=== PATIENT | male | born 1955 | race Hispanic/Latino ===

== ENCOUNTER 2018-04-06 09:16 | Inpatient (IN) | payer BC ==
[2018-03-17 09:10] VITALS: BMI 34.2
--- NOTE | 2018-04-06 10:03 | CP.PCM.HP ---
History of Present Illness - History of Present Illness History of Present Illness: 62M with right hip DJD failed conservative mgmt and elected for TKR. PMH: depression, HTN, DM, last took metformin 2 days ago, BS 137 PSH: denies smokes 15 cigarettes per day, cessation advised No prior stents, CAD, seizures, DVT/PE, TIA Present on Admission - Present on Admission Any Indicators Present on Admission: No Review of Systems - Review of Systems All systems: reviewed and no additional remarkable complaints except - Musculoskeletal Musculoskeletal: As Per HPI Past Patient History - Past Medical History & Family History Past Medical History?: Yes Past Family History: Reviewed and not pertinent - Past Social History Smoking Status: Heavy Smoker > 10 Cigarettes Daily - CARDIAC Hx Hypertension: Yes Hx Pacemaker: No - PULMONARY Hx Respiratory Disorders: No Hx Pneumonia: Yes (X2(LAST AGE 23)) - NEUROLOGICAL Hx Paralysis: No - ENDOCRINE/METABOLIC Hx Endocrine Disorders: Yes Hx Diabetes Mellitus Type 2: Yes - HEMATOLOGICAL/ONCOLOGICAL Hx Blood Transfusions: No - MUSCULOSKELETAL/RHEUMATOLOGICAL Hx Musculoskeletal Disorders: Yes Hx Osteoarthritis: Yes - GASTROINTESTINAL Hx Gastrointestinal Disorders: No - GENITOURINARY/GYNECOLOGICAL Hx Genitourinary Disorders: No Hx Reproductive Disorders: No - PSYCHIATRIC Hx Depression: Yes Hx Emotional Abuse: No Hx Physical Abuse: No Hx Substance Use: No - SURGICAL HISTORY Hx Surgeries: Yes Other/Comment: colonoscopy - ANESTHESIA Hx Anesthesia Reactions: No Hx Malignant Hyperthermia: No Meds Allergies/Adverse Reactions: Allergies Allergy/AdvReac Type Severity Reaction Status Date / Time No Known Allergies Allergy Verified 03/17/18 09:10 Physical Exam - Constitutional Appears: Well, No Acute Distress - Head Exam Head Exam: ATRAUMATIC - Neck Exam Neck exam: Positive for: Full Rom, Normal Inspection - Extremities Exam Additional comments: right leg 8mm short - Expanded Lower Extremities Exam Right Ankle exam: FULL ROM Neuro vacular tendon exam: no vascular compromise - Neurological Exam Neurological exam: Alert, Oriented x3 - Psychiatric Exam Psychiatric exam: Normal Affect, Normal Mood - Skin Skin Exam: Dry, Intact, Normal Color, Warm Results - Vital Signs Recent Vital Signs: Last Vital Signs Temp 97.7 F 04/06/18 09:30 Pulse 89 04/06/18 09:30 Resp 20 04/06/18 09:30 BP 154/78 H 04/06/18 09:30 Pulse Ox 94 L 04/06/18 09:30 - Labs Labs: Laboratory Results - last 24 hr 04/06/18 09:55 POC Glucose (mg/dL) 137 H Assessment & Plan (1) Primary osteoarthritis of right hip Assessment and Plan: NPO T&C for OR medical clearance adn H&P Dr. Hendricks on chart d/w DR. Isabel, agrees with above Status: Acute (2) Diabetes type 2, controlled Assessment and Plan: cont home meds Status: Chronic (3) HTN (hypertension) Assessment and Plan: cont home meds Status: Chronic (4) Depression Assessment and Plan: cont home meds Status: Chronic (5) Vitamin D deficiency Assessment and Plan: cont supp Status: Chronic
[2018-04-06] MEDS ORDERED: Dextrose 50% SYRINGE Inj (50 ml) IV PRN (10:35)
[2018-04-06] MEDS ORDERED: Tranexamic Acid 2 ML ONE (10:42)
[2018-04-06] MEDS ORDERED: Vancomycin 1 g Inj ONE ×2 (10:42→13:26)
[2018-04-06] MEDS ORDERED: Bupivacaine Liposomal Inj 20 ml ONE (10:43)
[2018-04-06] MEDS ORDERED: Morphine 1 mg/ml preservative-free Inj(Duramorph) IT ONE (10:45)
[2018-04-06] MEDS ORDERED: Succinylcholine 200 mg/10 ml Inj IV ONE (10:53)
[2018-04-06] MEDS ORDERED: Morphine 1 mg/ml preservative-free Inj(Duramorph) ONE (10:53)
[2018-04-06] MEDS ORDERED: Etomidate 20 mg/10ml Inj IV ONE (10:53)
[2018-04-06] MEDS ORDERED: ePHEDrine 50 mg/ml Inj ONE (11:20)
[2018-04-06] MEDS ORDERED: Clindamycin 150 mg/mL Inj ONE (11:21)
[2018-04-06] MEDS ORDERED: cefTRIAXone (Rocephin) 1 gm Inj ONE (11:22)
[2018-04-06] MEDS ORDERED: Glycopyrrolate 0.2 mg/ml (2ml vial) ONE (14:15)
[2018-04-06] MEDS ORDERED: Neostigmine Methylsulfate 3mg/3ml Syringe IV ONE (14:16)
--- NOTE | 2018-04-06 14:32 | PCM.SURG1 ---
Surgeon's Initial Post Op Note - Surgeon's Notes Surgeon: Sarah Isabel MD Special Education Associate: Anila Martinez PA-C Type of Anesthesia: General Endo, Spinal Anesthesia Administered By: Dr. Renteria Pre-Operative Diagnosis: right hip osteoarthritis Operative Findings: see full note Post-Operative Diagnosis: same Operation Performed: right total hip arthroplasty Specimen/Specimens Removed: femoral head Estimated Blood Loss: EBL {In ML}: 50 Blood Products Given: N/A Drains Used: Wound Vac Post-Op Condition: Fair Date of Surgery/Procedure: 04/06/18 Time of Surgery/Procedure: 14:31
[2018-04-06] MEDS ORDERED: HYDROmorphone 0.5 mg/0.5 ml ISec IVP PRN (15:02)
[2018-04-06] MEDS ORDERED: Lactated Ringer's 1,000 ML IV SCH (16:00)
[2018-04-06] MEDS ORDERED: DiphenhydrAMINE 50 mg/ml Inj IVP PRN (17:11)
[2018-04-06] MEDS ORDERED: Naloxone 0.02 mg/ml Inj (Neonatal) IV PRN (17:12)
[2018-04-06] MEDS: ceFAZolin IV 2 gm in Dextrose 2 GM/50 ML BAG IVPB SCH (18:48)
[2018-04-06] MEDS ORDERED: ceFAZolin 2 GM in Sodium Chloride 0.9% 100 ML IVPB SCH (19:00)
--- NOTE | 2018-04-07 00:04 | OP ---
Copied To: Stew Isabel MD Attending MD: Stew Isabel MD PROCEDURE DATE: 04/06/2018 PREOPERATIVE DIAGNOSIS: Right hip arthritis. POSTOPERATIVE DIAGNOSIS: Right hip arthritis. PROCEDURE: Right total hip arthroplasty. SURGEON: Stew Isabel MD. Dr. Isabel was assisted by Annabelle Zapata and Kelly Argueta, the physician assistants. Both Ms. Argueta and Ms. Zapata were scrubbed and present throughout the entire case and assisted in patient positioning, retraction, manipulation of the extremity as well as wound closure. ANESTHESIA: General with spinal. COMPLICATIONS: None. ESTIMATED BLOOD LOSS: 100 mL. IMPLANT: Biomet dual mobility total hip. INDICATIONS FOR PROCEDURE: This is a 62-year-old gentleman with longstanding right hip pain. Clinical examination was consistent with a mild limb length discrepancy with the right leg shorter than the left, loss of internal and external rotation, pain with weightbearing. Radiographic examination was consistent with advanced degenerative joint disease of the right hip. After a period of failed nonsurgical management, recommendations were for a right total hip arthroplasty. The risks, benefits and alternatives of procedure were discussed with the patient and the informed consent was obtained. OPERATIVE PROCEDURE: After the surgical site was signed and verified in the preoperative holding area, the patient was taken to the operating room and placed supine on the operating room table. After administration of general spinal anesthesia, the patient received 900 mg of clindamycin and 1 g of Rocephin IV. Sheffield catheter was inserted. The patient was positioned in the lateral decubitus position with the right hip up towards the ceiling. Venodyne boot was placed on the nonoperative extremity and the right lower extremity was prepped and draped in the usual sterile fashion. Approximately a 12 cm curvilinear incision was made over the right hip. Soft tissue was dissected sharply down to the fascia and the fascia was incised. Charnley retractor was placed. Short external rotators were identified, tagged and resected off the proximal femur. T-type capsulotomy was performed and the hip was dislocated. Based on preoperative templating, a femoral neck resection was performed and the femoral neck was removed and passed off as a specimen. An anterior capsulotomy was performed and the acetabulum was exposed. Once the acetabulum was exposed, the acetabulum was reamed sequentially to allow for a 54+ press-fit cup. was taken to maintain proper acetabular height and version. A trial cup was placed and satisfied. The trial was removed and the hip was pulse lavaged with antibiotic saline solution. Bony surfaces were dried and the actual cup was impacted into place, again maintaining proper height and version. The cup was further fixed using 2 screws in the posterior-superior quadrant. At this point, the liner for the dual mobility hip was then impacted into place and our attention was directed to the femur. The medullary canal of the proximal femur was reamed and broached sequentially to allow for a 14 mm press-fit stem. Calcar was planed and with a trial stem in place and a lateral offset neck, the head was placed and the hip was taken through a range of motion and was noted to be stable with approximately equal limb length. At this point, the hip was dislocated and the trial was removed. The hip was once again pulse lavaged and the actual stem was impacted into place to be able to maintain proper version. The head was then impacted over the stem and the hip was reduced. Again, the hip was taken through a range of motion and was noted to be stable with approximately equal limb lengths. At this point, capsule was repaired using #1 Vicryl suture. Subcutaneous tissue was repaired using #1 Vicryl suture. The deep fascia was closed using #1 Vicryl suture. Subcutaneous tissue was closed using 0 Vicryl and 2-0 Vicryl suture, and the skin was closed using syeda. A ALLI incisional wound dressing was applied and a hip abduction pillow was placed. The patient was awakened and taken to the recovery room in stable condition. Stew Isabel MD
[2018-04-07] MEDS: BREXPIPRAZOLE 1 MG PO SCH ×2 (02:32→22:00)
[2018-04-07] MEDS ORDERED: ceFAZolin 2 GM in Sodium Chloride 0.9% 100 ML IVPB SCH (04:00)
[2018-04-07] MEDS: ceFAZolin IV 2 gm in Dextrose 2 GM/50 ML BAG IVPB SCH (05:36)
[2018-04-07 07:32] LABS: BASO # 0.01 K/mm3 (0.0-2.0); BASO % 0.1 % (0.0-3.0); EOS % 0.2 % (1.5-5.0); GRAN # 10.14 (1.4-6.5); GRAN % 83.9 % (50.0-68.0); HEMOGLOBIN 12.9 g/dL (14.0-18.0); LYMPH # 0.9 (1.2-3.4); MEAN CELL VOLUME 83.6 fl (80.0-105.0); MEAN CORPUSCULAR HEMOGLOBIN 28.3 pg (25.0-35.0); MEAN CORPUSCULAR HGB CONC 33.9 g/dl (31.0-37.0); MEAN PLATELET VOLUME 8.2 fl (7.0-11.0); MONO # 1.1 (0.1-0.6); MONO % 8.8 % (1.0-6.0); RBC 4.56 10^6/uL (3.5-6.1); WHITE BLOOD COUNT 12.1 10^3/ul (4.5-11.0)
[2018-04-07 08:01] LABS: BLOOD UREA NITROGEN 26 mg/dL (7-21); CALCIUM 7.9 mg/dL (8.4-10.5); GFR AFRICAN-AMERICAN > 60; GFR NON-AFRICAN AMERICAN > 60
[2018-04-07] MEDS ORDERED: Sodium Chloride 0.9% 1,000 ML IV SCH (08:15)
[2018-04-07] MEDS: Insulin Regular 1 UNITS/0.01 ML ML SC SCH ×4 (08:20→22:00)
[2018-04-07] MEDS ORDERED: Albuterol 0.083% Inhal Sol (2.5 mg/3 mL) UD IH PRN ×2 (08:53→09:00)
[2018-04-07 08:56] LABS: PH,URINE 5.5 (4.7-8.0); URINE BILIRUBIN NEGATIVE (NEGATIVE); URINE BLOOD LARGE (NEGATIVE); URINE GLUCOSE (UA) NEGATIVE (NEGATIVE); URINE LEUKOCYTE ESTERASE NEGATIVE Leu/uL (NEGATIVE); URINE PROTEIN 30 mg/dL (<30 mg/dL); URINE UROBILINOGEN 0.2 E.U./dL (<1 E.U./dL)
[2018-04-07 09:02] LABS: URINE APPEARANCE CLEAR (CLEAR); URINE COLOR YELLOW (YELLOW)
[2018-04-07 09:07] LABS: URINE RBC 25 - 30 /hpf (0-2); URINE WBC 0 - 2 /hpf (0-6)
[2018-04-07 09:08] LABS: URINE AMORPHOUS SEDIMENT FEW; URINE BACTERIA MANY (NEG)
--- NOTE | 2018-04-07 09:28 | RAD ---
Date of service: 04/06/2018 PROCEDURE: Pelvis three views portable HISTORY: s/p R RICARDO. patient in pacu COMPARISON: TECHNIQUE: Three views FINDINGS: There is a right hip prosthesis in satisfactory position. There are no complicating factors. IMPRESSION: As above
[2018-04-07] MEDS: Cholecalciferol 400 Intl Units Tab PO SCH (10:09)
[2018-04-07] MEDS: Non Formulary Medication (Omega-3-Acid Ethyl Esters [Omega 3] 500 MG) PO SCH (10:12)
--- NOTE | 2018-04-07 10:34 | CP.PCM.PN ---
Subjective - Date & Time of Evaluation Date of Evaluation: 04/07/18 Time of Evaluation: 10:33 - Subjective Subjective: Pt awake, alert. Sitting in chair. Afebrile R hip: dressing clean and intact NVI distally thigh soft WBC 12.1 Hg 12.9 POD #1 PT Eliquis D/c planning to rehab Objective - Vital Signs/Intake and Output Vital Signs (last 24 hours): Temp Pulse Resp BP Pulse Ox 97.9 F 96 H 20 115/65 96 04/07/18 07:33 04/07/18 07:33 04/07/18 07:33 04/07/18 07:33 04/07/18 07:33 Intake and Output: 04/07/18 04/07/18 06:59 18:59 Intake Total 120 Balance 120 - Medications Medications: Current Medications Acetaminophen (Tylenol 325mg Tab) 650 mg PO Q6H [facility] Albuterol Sulfate (Albuterol 0.083% Inhal Colleen (2.5 Mg/3 Ml) Ud) 2.5 mg IH [id number] PRN PRN Reason: Wheezing Apixaban (Eliquis) 2.5 mg PO BID DAVID PRN Reason: Protocol Last Admin: 04/07/18 10:09 Dose: 2.5 mg Atorvastatin Calcium (Lipitor) 80 mg PO HS [facility] Last Admin: 04/06/18 22:43 Dose: 80 mg Diphenhydramine HCl (Benadryl) 25 mg IVP Q4H PRN PRN Reason: Itching / Pruritus Docusate Sodium (Colace) 100 mg PO TID [facility] Last Admin: 04/07/18 10:09 Dose: 100 mg Escitalopram Oxalate (Lexapro) 20 mg PO HS [facility] Last Admin: 04/06/18 22:43 Dose: 20 mg Glyburide (Micronase) 5 mg PO 0800,1700 [facility] Hydromorphone HCl (Dilaudid) 0.5 mg IVP Q4H PRN PRN Reason: Pain, severe (8-10) Sodium Chloride (Sodium Chloride 0.9%) 1,000 mls @ 125 mls/hr IV .Q8H [facility] Stop: 04/07/18 16:14 Last Admin: 04/07/18 08:39 Dose: 125 mls/hr Insulin Human Regular (Humulin R) 0 units SC ACHS [facility] PRN Reason: Protocol Last Admin: 04/07/18 08:20 Dose: 1 unit Metformin HCl (Glucophage) 500 mg PO BID [facility] Metoclopramide HCl (Reglan) 10 mg IV ONCE PRN PRN Reason: Nausea/Vomiting Naloxone HCl (Narcan) 0.02 mg IV ONCE PRN PRN Reason: Excess sedation Non-Formulary Medication (Brexpiprazole [Rexulti]) 1 mg PO HS [facility] Last Admin: 04/07/18 02:32 Dose: Not Given Non-Formulary Medication (Ygmyw-6-Btay Ethyl Esters [Gardiner 3]) 500 mg PO DAILY [facility] Last Admin: 04/07/18 10:12 Dose: Not Given Ondansetron HCl (Zofran Inj) 4 mg IVP Q6H PRN PRN Reason: Nausea/Vomiting Ondansetron HCl (Zofran Inj) 4 mg IVP Q4H PRN PRN Reason: Nausea/Vomiting Sennosides (Senokot Tab) 17.2 mg PO [facility] Last Admin: 04/06/18 22:42 Dose: 17.2 mg Vitamin D (Vitamin D 400 Intl Units Tab) 400 intlu PO DAILY [facility] Last Admin: 04/07/18 10:09 Dose: 400 intlu - Labs Labs: 04/07/18 07:00 04/07/18 07:00
[2018-04-07] MEDS: HYDROmorphone 0.5 mg/0.5 ml ISec IVP PRN ×2 (12:19→21:10)
[2018-04-07] MEDS ORDERED: cefTRIAXone 1 gm 1 GM/100 ML BAG IVPB SCH (13:00)
--- NOTE | 2018-04-07 19:21 | CON ---
Copied To: Slim Hendricks MD Attending MD: Slim Hendricks MD DATE: 04/07/2018 HISTORY OF PRESENT ILLNESS: A 62-year-old white male, tobacco abuser. The patient was admitted to the service of Dr. Stew Isabel for surgery. The patient had a right total hip replacement by Dr. Isabel. The patient tolerated the procedure well. He has seen the following morning in bed, awake, alert. The patient does have some wheezing. Also, was noted by respiratory therapy to be having some apneic episodes at night, possible sleep apnea. The patient was put on CPAP last night and did well. He will be evaluated as an outpatient for sleep apnea and also has CPAP at night here and also he will be started on some nebulizer. He is a smoker and mildly obese. PHYSICAL EXAMINATION: GENERAL: Shows a well-developed, well-nourished white male, in no apparent distress . HEART: Regular sinus rhythm. CHEST: Shows wheezing in all lung friedman, approximately 1-2 blocks. ABDOMEN: Obese, but benign. EXTREMITIES: Without cyanosis, clubbing, or edema. The patient is moving all extremities. Pulses are intact. The wounds are clean and dry. LABORATORY DATA: On Mr. Valdivia shows a hemoglobin of 12.9 and a potassium of 4.3. He does have mildly elevated blood sugars, 168. BUN and creatinine are stable. The patient is currently on Rexulti for psychological condition. He is on apixaban, metformin, Lexapro, Lipitor, glyburide. The patient is doing well. We will initiate some nebulizer therapy and CPAP at night. Slim Hendricks MD
[2018-04-08 07:30] LABS: BASO # 0.01 K/mm3 (0.0-2.0); BASO % 0.1 % (0.0-3.0); EOS % 0.1 % (1.5-5.0); GRAN # 9.32 (1.4-6.5); GRAN % 84.1 % (50.0-68.0); HEMOGLOBIN 12.1 g/dL (14.0-18.0); LYMPH # 0.9 (1.2-3.4); MEAN CORPUSCULAR HEMOGLOBIN 28.5 pg (25.0-35.0); MEAN CORPUSCULAR HGB CONC 34.4 g/dl (31.0-37.0); MEAN PLATELET VOLUME 7.9 fl (7.0-11.0); MONO # 0.9 (0.1-0.6); MONO % 7.7 % (1.0-6.0); RBC 4.24 10^6/uL (3.5-6.1); RED CELL DISTRIBUTION WIDTH 15.7 % (11.5-14.5); WHITE BLOOD COUNT 11.1 10^3/ul (4.5-11.0)
[2018-04-08 07:36] VITALS: RESP 20
[2018-04-08] MEDS: Insulin Regular 1 UNITS/0.01 ML ML SC SCH (07:55)
[2018-04-08 08:05] LABS: BLOOD UREA NITROGEN 17 mg/dL (7-21); CALCIUM 8.8 mg/dL (8.4-10.5); GFR AFRICAN-AMERICAN > 60; GFR NON-AFRICAN AMERICAN > 60
[2018-04-08] MEDS: Cholecalciferol 400 Intl Units Tab PO SCH (09:28)
[2018-04-08] MEDS: Non Formulary Medication (Omega-3-Acid Ethyl Esters [Omega 3] 500 MG) PO SCH (09:30)
--- NOTE | 2018-04-08 13:21 | PN ---
Copied To: Slim Hendricks MD Attending MD: Slim Hendricks MD DATE: 04/08/2018 This is a 62-year-old white male status post right total hip replacement by Dr. Isabel. The patient is doing well postop. He did have some wheezing yesterday. We started some physical therapy and occupational therapy and also some incentive spirometry and nebulizer therapy. The patient has no wheezing today, less shortness of breath. He was able to sit up and stand yesterday. He was able to walk to the bathroom. His physical examination is unchanged. His bandages have been changed. His wounds are clean and dry. He has no swelling or signs of DVT in either leg. He has good pulses bilaterally. The patient's chest is clear to auscultation and percussion. The patient will be transferred to rehab [facility]. Slim Hendricks MD
[2018-04-08 14:32] VITALS: BP 162/86; PULSE 103; TEMP 98.5; O2SAT 96
== END 2018-04-08 15:58 | DRG 470 ==
LOC: SDAINP 09:16 → EDSTATUS 11:15 → 5RSO 18:32
PROVIDERS: ADMIT Orthopaedic Surgery; ATTEND Orthopaedic Surgery
PROC: 0SR90JA Replacement of Right Hip Joint with Synthetic Substitute, Uncemented, Open Approach (ICD-10-PCS; principal; 2018-04-06 11:15)
DX: M16.11 Unilateral primary osteoarthritis, right hip (principal); I10 Essential (primary) hypertension; E11.9 Type 2 diabetes mellitus without complications; E55.9 Vitamin D deficiency, unspecified; E66.9 Obesity, unspecified; F17.200 Nicotine dependence, unspecified, uncomplicated; G47.30 Sleep apnea, unspecified; M21.70 Unequal limb length (acquired), unspecified site; Z87.01 Personal history of pneumonia (recurrent); Z68.35 Body mass index [BMI] 35.0-35.9, adult

== ENCOUNTER 2018-11-05 08:23 | Outpatient (CLI) | payer BC | END 2018-11-05 08:24 | disposition home or self-care (01) | LOC: PAT 08:23 ==

== ENCOUNTER 2018-11-30 06:13 | Inpatient (IN) | payer BC ==
[2018-11-30] MEDS ORDERED: Vancomycin 1 g Inj ONE (07:09)
[2018-11-30] MEDS ORDERED: Tranexamic Acid 2 ML ONE (07:09)
[2018-11-30] MEDS ORDERED: Sodium Chloride 0.9% 10 ML IV ONE (07:09)
[2018-11-30] MEDS ORDERED: Bupivacaine 0.5% 50 ML IJ ONE (07:10)
[2018-11-30] MEDS ORDERED: Bupivacaine Liposomal Inj 20 ml ONE (07:10)
--- NOTE | 2018-11-30 07:24 | CP.PCM.HP ---
History of Present Illness - History of Present Illness History of Present Illness: 63 M with left hip osteoarthritis, failed conservative management, elected for a left total hip replacement. NKDA pmhx of COPD, DM, hyperlipidemia, sleep apnea No hx of AL, stroke, blood clots or bleeding disorders Present on Admission - Present on Admission Any Indicators Present on Admission: No History of DVT/PE: No History of Uncontrolled Diabetes: No Review of Systems - Review of Systems All systems: reviewed and no additional remarkable complaints except (left hip pain) Past Patient History - Past Medical History & Family History Past Medical History?: Yes - Past Social History Smoking Status: Heavy Smoker > 10 Cigarettes Daily - CARDIAC Hx Pacemaker: No - PULMONARY Hx Respiratory Disorders: No Hx Pneumonia: Yes (X2(LAST AGE 23)) - NEUROLOGICAL Hx Paralysis: No - ENDOCRINE/METABOLIC Hx Diabetes Mellitus Type 2: Yes - HEMATOLOGICAL/ONCOLOGICAL Hx Blood Transfusions: No - MUSCULOSKELETAL/RHEUMATOLOGICAL Hx Musculoskeletal Disorders: Yes - GASTROINTESTINAL Hx Gastrointestinal Disorders: No - GENITOURINARY/GYNECOLOGICAL Hx Genitourinary Disorders: No - PSYCHIATRIC Hx Emotional Abuse: No Hx Physical Abuse: No Hx Substance Use: No - SURGICAL HISTORY Hx Surgeries: Yes - ANESTHESIA Hx Anesthesia Reactions: No Hx Malignant Hyperthermia: No Meds Allergies/Adverse Reactions: Allergies Allergy/AdvReac Type Severity Reaction Status Date / Time No Known Allergies Allergy Verified 03/17/18 09:10 Physical Exam - Constitutional Appears: Well, No Acute Distress - Head Exam Head Exam: ATRAUMATIC, NORMAL INSPECTION, NORMOCEPHALIC - Neck Exam Neck exam: Positive for: Full Rom, Normal Inspection - Respiratory Exam Respiratory Exam: NORMAL BREATHING PATTERN - Cardiovascular Exam Cardiovascular Exam: RRR - Extremities Exam Additional comments: L hip: skin intact. Pain with passive IR/ER rotation which is limited with IR. Equal limb length discrepancy. Calf and thigh are soft and nontender. Grossly NVI distally - Neurological Exam Neurological exam: Alert, CN II-XII Intact, Normal Gait, Oriented x3 - Psychiatric Exam Psychiatric exam: Normal Affect, Normal Mood - Skin Skin Exam: Dry, Intact, Normal Color, Warm Results - Vital Signs Recent Vital Signs: Last Vital Signs Temp 97.9 F 11/30/18 06:15 Pulse 84 11/30/18 06:15 Resp 20 11/30/18 06:15 BP 100/77 11/30/18 06:15 Pulse Ox 93 L 11/30/18 06:15 - Labs Labs: Laboratory Results - last 24 hr 11/30/18 06:37 POC Glucose (mg/dL) 151 H Assessment & Plan (1) Osteoarthritis of left hip Assessment and Plan: Patient NPO T&C OR for left total hip replacement Patient medically optimized for surgery. Risks benefits and alternatives discussed. Patient states understanding and would like to proceed. Status: Acute (2) Diabetes type 2, controlled Status: Chronic (3) Vitamin D deficiency Status: Chronic (4) COPD (chronic obstructive pulmonary disease) Status: Chronic (5) Hyperlipidemia Status: Chronic (6) Sleep apnea Status: Chronic
[2018-11-30] MEDS ORDERED: oxyCODONE 5 mg Immediate Release Tab PO PRN (07:37)
[2018-11-30] MEDS ORDERED: Propofol 10 mg/ml Inj (20 ML) ONE (08:04)
[2018-11-30] MEDS ORDERED: Midazolam 2 MG/2 ML VIAL ONE (08:04)
[2018-11-30] MEDS ORDERED: Rocuronium 10 mg/ml (5 ml) ONE ×2 (08:05→09:01)
[2018-11-30] MEDS ORDERED: Succinylcholine 200 mg/10 ml Inj IV ONE (08:05)
[2018-11-30] MEDS ORDERED: Glycopyrrolate 0.2 mg/ml (2ml vial) ONE ×2 (08:13→10:53)
[2018-11-30] MEDS ORDERED: ePHEDrine 50 mg/ml Inj ONE (08:25)
[2018-11-30] MEDS ORDERED: Neostigmine Methylsulfate 3mg/3ml Syringe IV ONE (10:52)
--- NOTE | 2018-11-30 11:44 | PCM.SURG1 ---
Surgeon's Initial Post Op Note - Surgeon's Notes Surgeon: Sarah Isabel MD Executor Of Estate: Shameka Griffiths Pa-C Type of Anesthesia: General Endo Anesthesia Administered By: Dr. Castaneda Pre-Operative Diagnosis: left hip osteoarthritis Operative Findings: see full note Post-Operative Diagnosis: same Operation Performed: left total hip replacement Specimen/Specimens Removed: femoral head Estimated Blood Loss: EBL {In ML}: 100 Blood Products Given: N/A Drains Used: No Drains Post-Op Condition: Fair Date of Surgery/Procedure: 11/30/18 Time of Surgery/Procedure: 11:44 (Palpable DP/PT pulses)
[2018-11-30] MEDS ORDERED: Lidocaine PF 2% (5 ml) Inj (For Cardiac Arrhy) ONE (11:45)
[2018-11-30] MEDS ORDERED: HYDROmorphone 0.5 mg/0.5 ml ISec IVP PRN (11:59)
[2018-11-30] MEDS ORDERED: Lactated Ringer's 1,000 ML IV SCH (12:00)
[2018-11-30] MEDS ORDERED: HYDROmorphone 0.5 mg/0.5 ml ISec IVP ONE ×3 (12:12→13:38)
[2018-11-30] MEDS ORDERED: HYDROmorphone 0.5 mg/0.5 ml ISec ONE ×2 (12:42→13:39)
[2018-11-30] MEDS ORDERED: HYDROmorphone 1 mg/ml ISec ONE (12:49)
[2018-11-30] MEDS ORDERED: HYDROmorphone 1 mg/ml ISec IVP ONE (12:50)
[2018-11-30] MEDS ORDERED: HYDROmorphone 1 mg/ml ISec IVP STA (12:52)
--- NOTE | 2018-11-30 13:12 | RAD ---
Date of service: 11/30/2018 PROCEDURE: Left hip single view HISTORY: s/p L RICARDO. patient in PACU COMPARISON: TECHNIQUE: Single view FINDINGS: The left hip prosthesis is in satisfactory alignment. There are no complicating factors IMPRESSION: As above
--- NOTE | 2018-11-30 13:14 | RAD ---
Date of service: 11/30/2018 PROCEDURE: Pelvis and left hip HISTORY: left hip 2 views. include an AP pelvis COMPARISON: TECHNIQUE: Three views FINDINGS: There is a left hip prosthesis in satisfactory alignment. No complicating factors IMPRESSION: As above
[2018-11-30] MEDS ORDERED: Home Med 1 UNIT PO SCH (14:00)
[2018-11-30] MEDS: Home Med 1 UNIT PO SCH (15:11)
[2018-11-30] MEDS: Omega-3-Acid Ethyl Esters 1 GM Cap PO SCH ×2 (15:11→17:01)
[2018-11-30] MEDS: ceFAZolin IV 2 gm in Dextrose 2 GM/50 ML BAG IVPB SCH (16:47)
[2018-11-30 18:22] VITALS: BMI 34.4
[2018-11-30] MEDS ORDERED: Pneumococcal 23-Valent Vaccine IM ONE (18:22)
[2018-11-30] MEDS ORDERED: Influenza Vaccine 60 mcg/0.5 mL SYR (4YR UP) IM ONE (18:22)
[2018-11-30] MEDS: HYDROmorphone 1 mg/ml ISec IVP PRN (20:20)
--- NOTE | 2018-11-30 23:27 | OP ---
PROCEDURE DATE: 11/30/2018 PREOPERATIVE DIAGNOSIS: Left hip osteoarthritis. POSTOPERATIVE DIAGNOSIS: Left hip osteoarthritis. PROCEDURE: Left total hip arthroplasty. SURGEON: Stew Isabel MD PRACTICAL NURSING TEACHER: Dr. Isabel was assisted by Annabelle Dobson, the physician research program assistant and Kelly Argueta, the physician research program assistant. Both physician assistants were scrubbed and present throughout the entire case and assisted in patient positioning, retraction, manipulation of the extremity during the case and wound closure. ANESTHESIA: General. COMPLICATIONS: None. ESTIMATED BLOOD LOSS: 100 mL IMPLANT: Biomet dual mobility total hip. INDICATION OF THE PROCEDURE: This is a 63-year-old gentleman who presented with longstanding left hip pain. Clinical examination was consistent with pain and loss of internal rotation, pain resisted hip flexion and axial load and a leg length discrepancy with the left lower extremity shorter than the right. Radiographic examination consistent with advanced degenerative joint disease. After a period of failed nonsurgical management, recommendations were for a left total hip arthroplasty. The risks, benefits and alternatives of the procedure were discussed with the patient including possibility of instability, infection, leg length discrepancy, and informed consent was obtained. OPERATIVE PROCEDURE: After surgical site was signed and verified in the perioperative holding area, the patient was taken to the operating room and placed supine on the operating room table. After administration of general anesthesia, the patient received 3 g of Ancef IV. Sheffield catheter was inserted. Venodyne boot was placed on the nonoperative extremity. The patient was positioned in the lateral decubitus position with the left hip up towards the ceiling. Care was taken to make sure all bony prominences and nerves were well padded and protected. Axillary roll was placed in the right axilla, and the left lower extremity was prepped and draped in the usual sterile fashion. Bony landmarks were identified about the left hip. Approximately 12-cm curvilinear incision was made over the proximal femur and pelvis. Soft tissue was dissected sharply down to the fascia. The fascia was incised. The Charnley retractor was placed. The short external rotators were identified, tied and resected off the proximal femur. T-type capsulotomy was performed. The hip was dislocated. At this point, based on the preoperative templating, a femoral neck resection was performed and the femoral head was passed off the field as a specimen. At this point, an anterior capsulotomy was performed. Once the acetabulum was exposed, the acetabular labrum was sharply excised. At this point, the acetabulum was reamed sequentially to allow for a 52-mm press-fit cup. Care was taken to maintain proper acetabular height and version. A trial cup was placed and satisfied. The hip joint was pulse lavaged with antibiotic saline solution. The bony surfaces were dried. The actual cup was impacted into place, again making sure to maintain proper height and version. Once this was done, the acetabulum was further fixed using two screws in the posterior-superior quadrant. The lining from the cup was then impacted into place. Our attention was directed to the proximal femur. Canal finding reamer was used additionally. At this point, a medullary canal of the proximal femur was reamed and broached sequentially to allow for a 14-mm press-fit colorless stem. Once the trial stem was in place, the calcar was planed and a trial neck and head was placed. The hip was reduced and limb length was noted to be approximately equal and was noted to be stable. Satisfied, the hip was dislocated and the trial implants were removed. The hip joint was once again pulse lavaged with antibiotic saline solution, and the bony surfaces were dried. The actual stem was then impacted into place making sure to maintain the proper version. Satisfied, the actual head was then impacted over the neck and the hip was reduced. Again, the hip was taken through the range of motion and noted to be stable with approximately equal limb length. At this point, capsule was repaired using 1 Vicryl suture. The short external rotator was repaired using a 1 Vicryl suture. The deep fascia was closed using interrupted #1 Vicryl suture. Subcutaneous tissue was closed using 0 Vicryl and 2-0 Vicryl sutures. The skin was closed using a 3-0 nylon. A sterile dressing was applied and abduction pillow brace was placed. The patient was transferred supine, awakened, and taken to recovery room in stable condition. Stew Isabel MD
[2018-12-01] MEDS: ceFAZolin IV 2 gm in Dextrose 2 GM/50 ML BAG IVPB SCH (05:27)
[2018-12-01] MEDS: HYDROmorphone 1 mg/ml ISec IVP PRN (06:25)
--- NOTE | 2018-12-01 06:40 | CP.PCM.CON ---
Past Patient History - Past Medical History & Family History Past Medical History?: Yes - Past Social History Smoking Status: Former Smoker - CARDIAC Hx Cardiac Disorders: Yes Hx Hypercholesterolemia: Yes Hx Hypertension: Yes Hx Pacemaker: No - PULMONARY Hx Respiratory Disorders: Yes (SMOKED 1 PPD X 39 YRS QUIT) Hx Chronic Obstructive Pulmonary Disease (COPD): Yes Hx Pneumonia: Yes (X2(LAST AGE 23)) Hx Sleep Apnea: Yes - NEUROLOGICAL Hx Neurological Disorder: No - HEENT Hx HEENT Problems: No - RENAL Hx Chronic Kidney Disease: No - ENDOCRINE/METABOLIC Hx Endocrine Disorders: Yes Hx Diabetes Mellitus Type 2: Yes - HEMATOLOGICAL/ONCOLOGICAL Hx Blood Disorders: No - INTEGUMENTARY Hx Dermatological Problems: Yes Other/Comment: POST L HIP TOTAL REPLACEMENT. - MUSCULOSKELETAL/RHEUMATOLOGICAL Hx Musculoskeletal Disorders: Yes (L HIP TOTAL ARTHROPLASTY,RIGHT HIP SX March,R KNEE SX) Hx Falls: No Hx Unsteady Gait: Yes - GASTROINTESTINAL Hx Gastrointestinal Disorders: No - GENITOURINARY/GYNECOLOGICAL Hx Genitourinary Disorders: No - PSYCHIATRIC Hx Psychophysiologic Disorder: No Hx Emotional Abuse: No Hx Physical Abuse: No Hx Substance Use: No - SURGICAL HISTORY Hx Surgeries: Yes Hx Orthopedic Surgery: Yes (BILATERAL HIP SX-L 11-30-18,R HIP MARCH 2018.) - ANESTHESIA Hx Anesthesia Reactions: No Hx Malignant Hyperthermia: No Meds Allergies/Adverse Reactions: Allergies Allergy/AdvReac Type Severity Reaction Status Date / Time No Known Allergies Allergy Verified 11/30/18 15:14 - Medications Medications: Current Medications Acetaminophen (Tylenol 325mg Tab) 650 mg PO Q6H [facility] Last Admin: 12/01/18 06:09 Dose: Not Given Apixaban (Eliquis) 2.5 mg PO BID [facility]; Protocol Atorvastatin Calcium (Lipitor) 80 mg PO DIN [facility] Last Admin: 11/30/18 17:01 Dose: 80 mg Calcium Carbonate (Caltrate) 600 mg PO DAILY [facility] Cholecalciferol (Vitamin D) 2,000 intlu PO DAILY [facility] Docusate Sodium (Colace) 100 mg PO BID [facility] Last Admin: 11/30/18 17:02 Dose: 100 mg Escitalopram Oxalate (Lexapro) 20 mg PO [facility] Glipizide (Glucotrol) 5 mg PO ACB [facility] Last Admin: 11/30/18 15:10 Dose: Not Given Home Med (Home Med) 100 unit PO DAILY [facility] Last Admin: 11/30/18 15:11 Dose: Not Given Hydromorphone HCl (Dilaudid) 1 mg IVP Q4H PRN PRN Reason: Pain, severe (8-10) Last Admin: 12/01/18 06:25 Dose: 1 mg Hydromorphone HCl (Dilaudid) 0.5 mg IVP Q15M PRN PRN Reason: Pain, Moderate/Severe (4-10) Metformin HCl (Glucophage) 500 mg PO BID [facility] Last Admin: 11/30/18 17:01 Dose: 500 mg Atulm-1-Pipv Ethyl Esters (Lovaza) 1 gm PO BID [facility] Last Admin: 11/30/18 17:01 Dose: 1 gm Oxycodone HCl (Oxycodone Immediate Release Tab) 5 mg PO Q4H PRN PRN Reason: Pain, Mild (1-3) Oxycodone HCl (Oxycodone Immediate Release Tab) 10 mg PO Q4 PRN PRN Reason: Pain, moderate (4-7) Pregabalin (Lyrica) 50 mg PO BID [facility] Last Admin: 11/30/18 17:01 Dose: 50 mg Sennosides (Senokot Tab) 8.6 mg PO DAILY [facility] Last Admin: 11/30/18 15:11 Dose: Not Given Results - Vital Signs Recent Vital Signs: Last Vital Signs Temp 99 F 11/30/18 22:27 Pulse 100 H 11/30/18 22:27 Resp 18 11/30/18 22:27 BP 139/73 11/30/18 22:27 Pulse Ox 96 11/30/18 22:27 - Labs Labs: Laboratory Results - last 24 hr 11/30/18 11/30/18 11/30/18 06:37 06:40 15:57 POC Glucose (mg/dL) 151 H 193 H Blood Type A POSITIVE Antibody Screen Negative Crossmatch See Detail BBK History Checked Patient has bt 11/30/18 11/30/18 21:10 22:49 POC Glucose (mg/dL) > 500 H* 166 H Blood Type Antibody Screen Crossmatch BBK History Checked
[2018-12-01 07:14] LABS: BASO # 0.02 K/mm3 (0.0-2.0); BASO % 0.2 % (0.0-3.0); EOS % 0.3 % (1.5-5.0); HEMOGLOBIN 12.4 g/dL (14.0-18.0); LYMPH # 0.9 (1.2-3.4); LYMPH % 8.1 % (22.0-35.0); MEAN CELL VOLUME 85.8 fl (80.0-105.0); MEAN CORPUSCULAR HEMOGLOBIN 28.8 pg (25.0-35.0); MEAN CORPUSCULAR HGB CONC 33.6 g/dl (31.0-37.0); MEAN PLATELET VOLUME 8.5 fl (7.0-11.0); MONO % 9.1 % (1.0-6.0); RBC 4.3 10^6/uL (3.5-6.1); RED CELL DISTRIBUTION WIDTH 15.4 % (11.5-14.5)
[2018-12-01 07:50] LABS: BLOOD UREA NITROGEN 16 mg/dL (7-21); CALCIUM 8.4 mg/dL (8.4-10.5); GFR NON-AFRICAN AMERICAN > 60
[2018-12-01] MEDS: Omega-3-Acid Ethyl Esters 1 GM Cap PO SCH ×2 (09:01→17:11)
[2018-12-01] MEDS: Cholecalciferol 1,000 INTLU TAB PO SCH (09:01)
[2018-12-01] MEDS: Home Med 1 UNIT PO SCH (09:02)
--- NOTE | 2018-12-01 09:45 | CP.PCM.PN ---
Subjective - Date & Time of Evaluation Date of Evaluation: 12/01/18 Time of Evaluation: 09:42 - Subjective Subjective: Patient seen and examined. Alert and awake, sitting up in bed. No overnight events. Denies any numbness tingling CP, SOB. Using incentive spirometer and hip abduction pillow on. Afebrile WBC 11 Hgb 12.4 L hip: dressings clean dry and intact. +AROM foot and ankle. Sensation intact to light touch. Thigh and calf soft and nontender. NVI distally POD#1 s/p L RICARDO Cont DVT prophylaxis Cont PT, posterior hip precautions Cont incentive spirometer Dressing changes tomorrow discharge planning to [facility] Discussed above with Dr. Isabel, agrees with above Objective - Vital Signs/Intake and Output Vital Signs (last 24 hours): Temp Pulse Resp BP Pulse Ox 98.6 F 92 H 18 141/72 98 12/01/18 06:00 12/01/18 06:00 12/01/18 06:00 12/01/18 06:00 12/01/18 06:00 Intake and Output: 12/01/18 12/01/18 06:59 18:59 Intake Total 480 Output Total 1350 Balance -870 - Medications Medications: Current Medications Acetaminophen (Tylenol 325mg Tab) 650 mg PO Q6H [facility] Last Admin: 12/01/18 08:26 Dose: 650 mg Apixaban (Eliquis) 2.5 mg PO BID [facility]; Protocol Last Admin: 12/01/18 09:01 Dose: 2.5 mg Atorvastatin Calcium (Lipitor) 80 mg PO DIN [facility] Last Admin: 11/30/18 17:01 Dose: 80 mg Calcium Carbonate (Caltrate) 600 mg PO DAILY [facility] Last Admin: 12/01/18 09:01 Dose: 600 mg Cholecalciferol (Vitamin D) 2,000 intlu PO DAILY [facility] Last Admin: 12/01/18 09:01 Dose: 2,000 intlu Docusate Sodium (Colace) 100 mg PO BID [facility] Last Admin: 12/01/18 09:02 Dose: 100 mg Escitalopram Oxalate (Lexapro) 20 mg PO HS [facility] Glipizide (Glucotrol) 5 mg PO ACB [facility] Last Admin: 12/01/18 08:26 Dose: 5 mg Home Med (Home Med) 100 unit PO DAILY [facility] Last Admin: 12/01/18 09:02 Dose: Not Given Hydromorphone HCl (Dilaudid) 1 mg IVP Q4H PRN PRN Reason: Pain, severe (8-10) Last Admin: 12/01/18 06:25 Dose: 1 mg Hydromorphone HCl (Dilaudid) 0.5 mg IVP Q15M PRN PRN Reason: Pain, Moderate/Severe (4-10) Insulin Human Regular (Humulin R Low) [address] [facility]; Protocol Metformin HCl (Glucophage) 500 mg PO BID [facility] Last Admin: 12/01/18 09:01 Dose: 500 mg Haqbo-2-Lrho Ethyl Esters (Lovaza) 1 gm PO BID [facility] Last Admin: 12/01/18 09:01 Dose: 1 gm Oxycodone HCl (Oxycodone Immediate Release Tab) 5 mg PO Q4H PRN PRN Reason: Pain, Mild (1-3) Oxycodone HCl (Oxycodone Immediate Release Tab) 10 mg PO Q4 PRN PRN Reason: Pain, moderate (4-7) Pregabalin (Lyrica) 50 mg PO BID [facility] Last Admin: 12/01/18 09:01 Dose: 50 mg Sennosides (Senokot Tab) 8.6 mg PO DAILY [facility] Last Admin: 12/01/18 09:01 Dose: 8.6 mg - Labs Labs: 12/01/18 06:45 12/01/18 06:45 Assessment and Plan (1) Osteoarthritis of left hip Status: Acute (2) Diabetes type 2, controlled Status: Chronic (3) Vitamin D deficiency Status: Chronic (4) COPD (chronic obstructive pulmonary disease) Status: Chronic (5) Hyperlipidemia Status: Chronic (6) Sleep apnea Status: Chronic
--- NOTE | 2018-12-01 11:32 | CON ---
DATE: 12/01/2018 HISTORY OF PRESENT ILLNESS: A 63-year-old white male with a history of total right hip replacement approximately less than 1 year ago who was admitted for total left hip replacement by Dr. Isabel. The patient has a history of obesity and degenerative arthritis. He was admitted and had a surgery done. He is postop, doing well. He has a blood pressure of 141/72, temperature is 98.6 and pulse is 92. His hemoglobin is 12.2, . BUN and creatinine are stable, potassium is 3.9 and blood sugar is 165. HOME MEDICATIONS: The patient's home medications include Crestor, glipizide, metformin, Invokana, Lexapro, magnesium oxide, acetaminophen, vitamin D and Rexulti. PAST MEDICAL HISTORY: The patient has also history of non insulin-dependent diabetes mellitus, hyperlipidemia, hypertension and depressive disorder. PHYSICAL EXAMINATION: GENERAL: Shows a well-developed, well-nourished white male, postop, doing well as he is awake and alert . He is complaining of pain in the anterior left thigh. VITAL SIGNS: He is afebrile. Vital signs are stable. CHEST: Clear to auscultation and percussion. HEART: Regular sinus rhythm. No S3 or murmurs. EXTREMITIES: Without cyanosis, clubbing, or edema. The patient's pulses are intact bilaterally. He is moving all extremities. There is no loss of strength or sensation. His blood sugar will be controlled in the hospital. We will start physical therapy, occupational, incentive spirometry, anticoagulation and eventually rehab. Slim Hendricks MD
[2018-12-01] MEDS: Insulin Reg-LOW-Coverage SC SCH ×2 (11:57→17:11)
[2018-12-01] MEDS: oxyCODONE 10 mg Immediate Release Tab PO PRN (20:09)
[2018-12-01 22:29] VITALS: RESP 20
[2018-12-02 07:30] LABS: BLOOD UREA NITROGEN 19 mg/dL (7-21); GFR NON-AFRICAN AMERICAN > 60
[2018-12-02 08:08] VITALS: O2SAT 91
[2018-12-02] MEDS: Insulin Reg-LOW-Coverage SC SCH ×2 (08:39→17:07)
[2018-12-02] MEDS: oxyCODONE 10 mg Immediate Release Tab PO PRN (08:40)
[2018-12-02 08:58] LABS: BASO # 0.02 K/mm3 (0.0-2.0); BASO % 0.1 % (0.0-3.0); EOS % 0.1 % (1.5-5.0); HEMOGLOBIN 12.5 g/dL (14.0-18.0); LYMPH # 1.1 (1.2-3.4); LYMPH % 7.9 % (22.0-35.0); MEAN CELL VOLUME 86.2 fl (80.0-105.0); MEAN CORPUSCULAR HEMOGLOBIN 29.2 pg (25.0-35.0); MEAN CORPUSCULAR HGB CONC 33.9 g/dl (31.0-37.0); MEAN PLATELET VOLUME 8.7 fl (7.0-11.0); MONO # 1.1 (0.1-0.6); MONO % 8.1 % (1.0-6.0); RBC 4.28 10^6/uL (3.5-6.1); RED CELL DISTRIBUTION WIDTH 15.7 % (11.5-14.5); WHITE BLOOD COUNT 13.5 10^3/uL (4.5-11.0)
[2018-12-02] MEDS ORDERED: POLYETHYLENE GLYCOL 3350 17 GM/Dose PACKET PO SCH (10:00)
[2018-12-02] MEDS: Omega-3-Acid Ethyl Esters 1 GM Cap PO SCH (10:45)
[2018-12-02] MEDS: Cholecalciferol 1,000 INTLU TAB PO SCH (10:45)
--- NOTE | 2018-12-02 13:04 | PN ---
DATE: 12/02/2018 SUBJECTIVE: A 63-year-old white male status post left hip replacement. The patient still has pain in the anterior left hip. He is cleared by Surgery to go to rehab. He has not had a bowel movement. He has been on pain medications. He is on . We will add MiraLax today. He will be discharged to [facility] in [place] and will be followed by us at [facility]. PHYSICAL EXAMINATION: VITAL SIGNS: Stable. He is afebrile. CHEST: Clear to auscultation and percussion. HEART: Regular sinus rhythm. ABDOMEN: Obese, but benign. EXTREMITIES: Without cyanosis, clubbing, or edema. IMPRESSION: A 63-year-old white male post left hip replacement the patient from pain medication, history of hypertension. PLAN: To continue current therapy and transfer to [facility]. Slim Hendricks MD
[2018-12-02 14:52] VITALS: BP 128/75; PULSE 98; TEMP 94
== END 2018-12-02 17:02 | DRG 470 ==
LOC: SDAINP 06:13 → EDSTATUS 11:45 → 5RNO 14:36
PROVIDERS: ADMIT Orthopaedic Surgery; ATTEND Orthopaedic Surgery
PROC: 0SRB0JZ Replacement of Left Hip Joint with Synthetic Substitute, Open Approach (ICD-10-PCS; principal; 2018-11-30 07:30)
DX: M16.12 Unilateral primary osteoarthritis, left hip (principal); J44.9 Chronic obstructive pulmonary disease, unspecified; E11.9 Type 2 diabetes mellitus without complications; E55.9 Vitamin D deficiency, unspecified; I10 Essential (primary) hypertension; G47.30 Sleep apnea, unspecified; E78.5 Hyperlipidemia, unspecified; M21.70 Unequal limb length (acquired), unspecified site; Z87.01 Personal history of pneumonia (recurrent); Z96.641 Presence of right artificial hip joint; E66.9 Obesity, unspecified; Z68.34 Body mass index [BMI] 34.0-34.9, adult; F32.89 Other specified depressive episodes; F17.210 Nicotine dependence, cigarettes, uncomplicated